=== PATIENT | male | born 1975 | race African-American/Black ===

== ENCOUNTER 2016-10-26 12:55 | Inpatient (IN) | payer OTHER ==
--- NOTE | ~2016-10-26 | DS ---
Unit #: [id number] #: [id number] Patient: JANA TRAN [id number] [facility] [address] [place] [address] [id number] MR#: [id number] NAME: JANA TRAN ROOM: P175 Age: 41 Sex: M Admission Date: 10/26/2016 : 1975 Discharge Date: 10/29/2016 Attending Physician: Nilo Martinez M.D. DISCHARGE SUMMARY IDENTIFYING DATA Mr. Tran is a 41-year-old white male who was self-referred to the hospital. DISCHARGE DIAGNOSES Psychiatric: Major depressive disorder, recurrent, moderate, without psychotic features. Medical: Hypertension. Stressors: Moderate psychosocial stressors. HISTORY OF PRESENT ILLNESS Please see initial psychiatric evaluation for details. PAST PSYCHIATRIC HISTORY Please see initial psychiatric evaluation for details. PAST MEDICAL HISTORY Please see initial psychiatric evaluation for details. HOSPITAL COURSE The patient was admitted to the adult psychiatric unit at [facility] and was oriented to the hospital environment. Routine p.r.n. medications were initiated. He was started back on his home medications taking the medications regularly and was tolerating them fairly well, and was able to show decent therapeutic response with improvement in depression and anxiety and as such, it was decided that he will be discharged and continue treatment on an outpatient basis. DISCHARGE MEDICATIONS . DISCHARGE CONDITION Stable. PROGNOSIS Fair. Dictated by... Antonio Stout/pagel TD: 12/14/2016 13:10 Unit #: [id number] #: [id number] Patient: JNAA TRAN JOB #: [id number] DISCHARGE SUMMARY Page 1 of 1 X Nilo Martinez MD X DISCHARGE SUMMARY
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
--- NOTE | ~2016-10-26 | PN ---
Unit #: [id number] #: [id number] Patient: JANA TRAN [id number] [facility] [address] [place] [address] [id number] I MR#: [id number] NAME: JANA TRAN ROOM: P175 Age: 41 Sex: M Admission Date: 10/26/2016 : 1975 Attending Physician: Nilo Martinez M.D. Admitting Physician: Nilo Martinez M.D. Primary Care Physician: Generic Doctor Not In System [facility] PROGRESS NOTES DATE 10/28/2016 DISCUSSION Mr. Tran is a 41-year-old, male who was seen today and chart was reviewed and case was discussed with the staff. He has been anxious, withdrawn and rather seclusive to himself. Meanwhile, he has been cooperative with the treatment recommendations. He has been taking the medication and tolerating them fairly well with no reported side effects. MENTAL STATUS EXAM Middle-aged male who was casually dressed with fair personal hygiene, appears to be in no acute distress or discomfort. He was awake and alert on interaction with intact orientation. His mood was anxious with congruent affect. His speech was slow and goal directed. He denies any suicidal or homicidal ideation. His insight and judgement remains slightly impaired. TREATMENT PLAN 1. We will continue him on his current medications and treatment protocol. We will monitor his response to medication and make further adjustments as needed. 2. We will continue to follow up. Dictated by... Antonio Stout/junaid TD: 10/29/2016 01:39 JOB #: [id number] Unit #: [id number] #: [id number] Patient: JANA TRAN [facility] PROGRESS NOTES X Nilo Martinez MD PROGRESS NOTE
--- NOTE | ~2016-10-26 | PN ---
Unit #: [id number] #: [id number] Patient: JANA TRAN [id number] [facility] [address] [place] [address] [id number] I MR#: [id number] NAME: JANA TRAN ROOM: P175 Age: 41 Sex: M Admission Date: 10/26/2016 : 1975 Attending Physician: Nilo Martinez M.D. Admitting Physician: Nilo Martinez M.D. Primary Care Physician: Generic Doctor Not In System [facility] PROGRESS NOTES DATE OF SERVICE 10/27/2016 DISCUSSION Mr. Tran is a 41-year-old male who was seen today. Chart was reviewed and case was discussed with the staff. He has been doing fairly though has been complaining of persistent anxiety, depression, and poor sleep at night. Meanwhile, he has been polite, pleasant, and cooperative with treatment recommendations. MENTAL STATUS EXAMINATION Middle-aged male who is casually dressed with fair personal hygiene, appears to be in no acute distress or discomfort. The patient was awake and alert with impaired attention and concentration. His mood is anxious with congruent affect. His speech is slow and restricted in content. He denies any suicidal or homicidal ideations. His insight and judgment remain significantly impaired. TREATMENT PLAN 1. We will continue him on his current treatment protocol. We will monitor his response and make further adjustments as needed. 2. We will continue to follow up. Dictated by... Antonio Stout/scottg TD: 10/28/2016 08:18 JOB #: [id number] [facility] PROGRESS NOTES X Nilo Martinez MD PROGRESS NOTE
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
[2016-10-27 09:54] LABS: URINE APPEARANCE TURBID; URINE BILIRUBIN NEG (NEG); URINE BLOOD NEG (NEG); URINE COLOR YELLOW; URINE GLUCOSE NEG (NEG); URINE KETONE NEG (NEG); URINE LEUKOCYTE ESTERASE NEG (NEG); URINE NITRATE NEG (NEG); URINE PROTEIN NEG (NEG); URINE SPECIFIC GRAVITY 1.029 (1.003-1.035); URINE UROBILINOGEN 0.2 MG/DL (NEG)
[2016-10-27 10:56] LABS: AMPHETAMINE NEG (NEG); BARBITURATES NEG (NEG); BENZODIAZEPINES NEG (NEG); COCAINE POS (NEG); MARIJUANA POS (NEG); OPIATES NEG (NEG); TRICYCLIC ANTIDEPRESSANTS NEG (NEG); U METHADONE NEG (NEG)
== END 2016-10-29 09:30 | DRG 885 ==
LOC: P1E 12:55
PROVIDERS: Psychiatry & Neurology Psychiatry
DX: F33.1 Major depressive disorder, recurrent, moderate (principal); F11.20 Opioid dependence, uncomplicated; I10 Essential (primary) hypertension; F14.10 Cocaine abuse, uncomplicated; F12.10 Cannabis abuse, uncomplicated; F17.210 Nicotine dependence, cigarettes, uncomplicated
CPT/HCPCS: 80307; 81003

== ENCOUNTER 2017-01-05 06:00 | Inpatient (IN) | payer OTHER ==
--- NOTE | ~2017-01-05 | PN ---
Unit #: [id number] #: [id number] Patient: JANA TRAN [id number] [facility] [address] [place] [address] [id number] I MR#: [id number] NAME: JANA TRAN ROOM: P179 Age: 41 Sex: M Admission Date: 01/05/2017 : 1975 Attending Physician: Nilo Martinez M.D. Admitting Physician: Nilo Martinez M.D. Primary Care Physician: Gila Doctor Not In System [facility] PROGRESS NOTES DATE 01/06/2017 DISCUSSION Mr. Tran is a 41-year-old, white male who was seen today and chart was reviewed and case was discussed with the staff. He has been anxious, withdrawn though has not shown any agitation, irritability or behavioral problems and has been cooperative with treatment recommendations. He has been taking the medication and tolerating them fairly well with no reported side effects. MENTAL STATUS EXAM Middle-aged white male who was casually dressed with fair personal hygiene, appears to be in no acute distress or discomfort. He was awake and alert on interaction with intact orientation. His mood was anxious with congruent affect. His speech was slow and goal directed. He denies any suicidal or homicidal ideation. Also, denies any auditory or visual hallucinations. His insight and judgement remains slightly impaired. TREATMENT PLAN 1. We will continue him on his current medications and treatment protocol. We will monitor his response and make further adjustments as needed. 2. We will continue to follow up. Dictated by... Antonio Stout/junaid TD: 01/06/2017 22:25 JOB #: [id number] Unit #: [id number] #: [id number] Patient: JANA TRAN [facility] PROGRESS NOTES Page 1 of 1 X Nilo Martinez MD PROGRESS NOTE
--- NOTE | ~2017-01-05 | PN ---
Unit #: [id number] #: [id number] Patient: JANA TRAN [id number] [facility] [address] [place] [address] [id number] I MR#: [id number] NAME: JANA TRAN ROOM: P179 Age: 41 Sex: M Admission Date: 01/05/2017 : 1975 Attending Physician: Nilo Martinez M.D. Admitting Physician: Nilo Martinez M.D. Primary Care Physician: Gila Doctor Not In System [facility] PROGRESS NOTES DATE 01/09/2017 DISCUSSION Mr. Tran is a 41-year-old, male who was seen today and chart was reviewed and case was discussed with the staff. He has been anxious, withdrawn, depressed and rather seclusive to himself. Meanwhile, he has been cooperative with the treatment recommendations. He has been taking the medication and tolerating them fairly well with no reported side effects. MENTAL STATUS EXAM Middle-aged male who was casually dressed with fair personal hygiene, appears to be in no acute distress or discomfort. He was awake and alert on interaction with intact orientation. His mood was anxious and depressed with congruent affect. He denies any current suicidal or homicidal ideation. Also, denies any auditory or visual hallucinations. His insight and judgement remains slightly impaired. TREATMENT PLAN We will continue him on his current medications and treatment protocol. We will monitor his response and we will consider doing discharge planning tomorrow. Dictated by... Antonio Stout/junaid TD: 01/11/2017 05:11 JOB #: [id number] Unit #: [id number] #: [id number] Patient: JANA TRAN [facility] PROGRESS NOTES Page 1 of 1 X Nilo Martinez MD PROGRESS NOTE
--- NOTE | ~2017-01-05 | PA ---
Unit #: [id number] #: [id number] Patient: JANA TRAN [id number] [facility] [address] [place] [address] [id number] I MR#: [id number] NAME: JANA TRAN ROOM: P179 Age: 41 Sex: M Admission Date: 01/05/2017 : 1975 Date of Assessment: Attending Physician: Nilo Martinez M.D. Admitting Physician: Nilo Martinez M.D. Primary Care Physician: Generic Doctor Not In System PSYCHIATRIC ASSESSMENT DATE OF SERVICE 01/05/2017. IDENTIFYING DATA Mr. Tran is a 41-year-old male, who is a resident of [place], [place], and was self-referred to the hospital on voluntary basis. CHIEF COMPLAINT "I'm depressed. I just feel like dying." HISTORY OF PRESENT ILLNESS Mr. Tran is a 41-year-old male with history of mood disorder, who was self-referred to the hospital reporting increasing depression, anxiety, feelings of hopelessness and helplessness, and suicidal ideation. "It has gotten worse today and I thought about shooting myself. I'm just fed up." He reports that his son in 01/2015. He is currently unemployed and lives with his father and reports losing a baby son in 2014, reports his son dying from SIDS and the patient reports that he continues to have lower back problem, unable to function, and has history of suicidal ideation and currently reports suicidal ideations with intent and plan and as such, recommendation for inpatient level of care for safety and stabilization was made and the patient was stepped up to the inpatient unit. SUBSTANCE ABUSE HISTORY The patient reports history of alcohol, cannabis, cocaine, and opioid abuse in the past, though he reports that he has history of smoking crack and cannabis daily, but reports his last use was about 6 months ago. PAST PSYCHIATRIC HISTORY The patient has had [facility], but currently he is not active in treatment program. Review of the medical records indicate that he is supposed to be on a combination of Wellbutrin, Risperdal, and Remeron. PAST MEDICAL HISTORY The patient's medical history is significant for hypertension and HIV. ALLERGIES No known medication allergies. PERSONAL AND SOCIAL HISTORY Unit #: [id number] #: [id number] Patient: JANA TRAN A 41-year-old male, who reports that he is single, unemployed, and lives with his father and has poor social support system. MENTAL STATUS EXAMINATION Middle-aged male who was casually dressed with fair personal hygiene, appears to be in no acute distress or discomfort. He was awake and alert on interaction with intact orientation to time, place, and person. His mood was anxious and depressed with a congruent affect. His speech was slow and restricted in content. His thought processes were disorganized with some looseness of associations and suicidal ideations. His insight and judgment remain significantly impaired. DIAGNOSTIC IMPRESSION Psychiatric: Major depressive disorder, recurrent, moderate, without psychotic features; cocaine abuse, moderate; cannabis abuse, moderate. Medical: Hypertension, human immunodeficiency virus. Stressors: Moderate psychosocial stressors. TREATMENT PLAN 1. The patient has presented with history of mood disorder and has been decompensating and will need inpatient hospitalization for detoxification, safety, and stabilization. We will start him back on his home medications. We will adjust the medications and monitor response. 2. Supportive therapy was provided to the patient. 3. Safe, structured, and nourishing environment will be provided. ESTIMATED LENGTH OF STAY 4 to 5 days. ABILITY TO HELP SELF Limited. WILLINGNESS TO HELP SELF The patient appears to be willing to help self. STRENGTHS 1. Communicative. 2. Cooperative. PROBLEMS 1. Chronic dysphoric symptoms. 2. Chronic chemical dependency. 3. Poor social support system. DISCHARGE CRITERIA This will be contingent upon the patient's ability to go through detox without having any significant withdrawal symptoms as well as his ability to stay safe to himself, particularly after discharge from the hospital. Dictated by... Nilo Martinez M.D. EULALIA/demarcus TD: 01/06/2017 06:46 JOB #: [id number] Unit #: [id number] #: [id number] Patient: JANA TRAN PSYCHIATRIC ASSESSMENT Page 1 of 1 X Nilo Martinez MD PSYCHIATRIC ASSESSMENT
--- NOTE | ~2017-01-05 | DS ---
Unit #: [id number] #: [id number] Patient: JANA TRAN [id number] [facility] [address] [place] [address] [id number] I MR#: [id number] NAME: JANA TRAN ROOM: P179 Age: 41 Sex: M Admission Date: 01/05/2017 : 1975 Discharge Date: 01/10/2017 Attending Physician: Nilo Martinez M.D. Primary Care Physician: Generic Doctor Not In System DISCHARGE SUMMARY IDENTIFYING DATA Mr. Tran is a 41-year-old male, who is a resident of [place], [place] and was self-referred to the hospital on voluntary basis. DISCHARGE DIAGNOSES Psychiatric: Major depressive disorder, recurrent, moderate, without psychotic features; cocaine abuse, moderate; cannabis abuse, moderate. Medical: Hypertension, human immunodeficiency virus. Stressors: Moderate psychosocial stressors. HISTORY OF PRESENT ILLNESS Please see initial psychiatric evaluation for details. PAST PSYCHIATRIC HISTORY Please see initial psychiatric evaluation for details. PAST MEDICAL HISTORY Please see initial psychiatric evaluation for details. HOSPITAL COURSE The patient was [facility] and was oriented to the hospital environment. Routine p.r.n. medications were initiated, and he was started back on his home medications and was closely monitored. He was seen to be exhibiting very manipulative behavior as he was constantly making statements that he does not need to be here and that he wants to leave and was maintained on his medications and was denying any suicidal ideations, intent, or plan and was not seen to be danger to self or anyone else, and as such, it was decided that he will be discharged home and will continue treatment on an outpatient basis. DISCHARGE MEDICATIONS Neurontin 100 mg b.i.d. for neuropathy, Wellbutrin 100 mg b.i.d. for depression, Remeron 15 mg at bedtime for depression, Risperdal 1 mg at bedtime and 0.5 mg b.i.d. for mood disorder, Norvasc 10 mg a day for hypertension, Zestril 20 mg a day for hypertension, aspirin 81 mg a day for coronary artery disease, Lopressor 25 mg b.i.d. for hypertension, Toradol 10 mg b.i.d. for pain. DISCHARGE CONDITION Stable. Unit #: [id number] #: [id number] Patient: JANA TRAN PROGNOSIS Fair. Dictated by... Antonio Stout/demarcus TD: 01/11/2017 01:55 JOB #: [id number] DISCHARGE SUMMARY Page 1 of 1 X Nilo Martinez MD X DISCHARGE SUMMARY
--- NOTE | ~2017-01-05 | PN ---
Unit #: [id number] #: [id number] Patient: JANA TRAN [id number] [facility] [address] [place] [address] [id number] I MR#: [id number] NAME: JANA TRAN ROOM: P179 Age: 41 Sex: M Admission Date: 01/05/2017 : 1975 Attending Physician: Nilo Martinez M.D. Admitting Physician: Nilo Martinez M.D. Primary Care Physician: Generic Doctor Not In System [facility] PROGRESS NOTES DATE 01/07/2017 DISCUSSION Mr. Tran is a 41-year-old male who was seen today and chart was reviewed and case was discussed with the staff. He was seen to be anxious, restless, pacing the hallways and wanting to leave and was trying to actively mask and minimize his presentation including his thoughts of wanting to shoot himself. There is also red label on the chart regarding duty to warn and I informed about that and he was acting completely ignorant stating that he does not know what that is about. Meanwhile, social staff worker recommended to look into it. MENTAL STATUS EXAMINATION Middle-aged male who was casually dressed with fair personal hygiene and appears to be in no acute distress or discomfort. He was awake and alert on interactions with intact orientation. His mood was anxious with congruent affect. His speech is slow and tangential. Thought processes were disorganized with some looseness of associations, flight of ideas. His insight and judgement remains significantly impaired. TREATMENT PLAN 1. Will continue his current medications and treatment protocol. Will monitor his response to the medications and make further adjustments as needed. 2. Will continue to follow up. Dictated by... Antonio Stout/ponce TD: 01/08/2017 22:28 JOB #: [id number] Unit #: [id number] #: [id number] Patient: JANA TRAN [facility] PROGRESS NOTES Page 1 of 1 X Nilo Martinez MD X PROGRESS NOTE
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
--- NOTE | ~2017-01-05 | PN ---
Unit #: [id number] #: [id number] Patient: JANA TRAN [id number] [facility] [address] [place] [address] [id number] I MR#: [id number] NAME: JANA TRAN ROOM: P179 Age: 41 Sex: M Admission Date: 01/05/2017 : 1975 Attending Physician: Nilo Martinez M.D. Admitting Physician: Nilo Martinez M.D. Primary Care Physician: Generic Doctor Not In System [facility] PROGRESS NOTES DATE OF SERVICE: 01/08/2017 SUBJECTIVE Mr. Tran is a 41-year-old male, who was seen today and chart was reviewed, and case was discussed with the staff. He has been doing fairly well with no agitation, irritability. Calm and cooperative, though he has been agitation and aggression. MENTAL STATUS EXAMINATION Middle-aged male who was casually dressed with fair personal hygiene, appears to be in no acute distress or discomfort. He was awake and alert with impaired attention and concentration. His mood was anxious with a congruent affect. His speech was slow and restricted in content. He denies any suicidal or homicidal ideations. His insight and judgment remain significantly impaired. TREATMENT PLAN 1. We will continue him on his current medications and treatment protocol. We will monitor his response to medications and make further adjustments as needed. 2. We will continue to follow up. Dictated by... Antonio Stout/demarcus TD: 01/09/2017 01:54 JOB #: [id number] [facility] PROGRESS NOTES Page 1 of 1 X Nilo Martinez MD PROGRESS NOTE
[2017-01-06 10:02] LABS: URINE APPEARANCE CLEAR; URINE BILIRUBIN NEG (NEG); URINE BLOOD NEG (NEG); URINE COLOR YELLOW; URINE GLUCOSE NEG (NEG); URINE KETONE NEG (NEG); URINE LEUKOCYTE ESTERASE 1+ (NEG); URINE NITRATE NEG (NEG); URINE PROTEIN NEG (NEG); URINE SPECIFIC GRAVITY 1.013 (1.003-1.035); URINE UROBILINOGEN 0.2 MG/DL (NEG)
[2017-01-06 10:04] LABS: U HYALINE CASTS AUWI 0-2 /[LPF]; URBCS1 AUWI 0-2 /[HPF] (0-2); URINE BACTERIA AUWI NEG (NEGATIVE); URINE SQUAMOUS EPITHELIAL CELL OCC /[HPF]
[2017-01-06 10:55] LABS: AMPHETAMINE NEG (NEG); BARBITURATES NEG (NEG); BENZODIAZEPINES NEG (NEG); COCAINE POS (NEG); MARIJUANA POS (NEG); OPIATES NEG (NEG); TRICYCLIC ANTIDEPRESSANTS NEG (NEG); U METHADONE NEG (NEG)
[2017-01-08 13:48] LABS: BASOPHIL% 1.3 % (0-2.5); DIFF IND NO; EOSINOPHIL# 0.2 X10e3 (0-0.7); EOSINOPHIL% 5.2 % (0.0-7.0); HEMATOCRIT 41.8 % (38.0-50.0); HEMOGLOBIN 13.8 gm/dL (13.0-16.0); LYMPHOCYTE# 1.3 X10e3 (1.0-3.5); LYMPHOCYTE% 35.3 % (17.0-45.0); MEAN CELL VOLUME 93.1 FL (83-96); MEAN CORPUSCULAR HEMOGLOBIN 30.8 PG (28-34); MEAN CORPUSCULAR HGB CONC 33.1 g/dL (30-36); MEAN PLATELET VOLUME 8.2 FL (6.5-11.5); MONOCYTE# 0.3 X10e3 (0-1.0); MONOCYTE% 9.2 % (3.0-12.0); NEUTROPHIL# 1.8 X10e3 (1.5-7.1); PLATELET COUNT 215 X10e3 (140-420); RED BLOOD COUNT 4.49 X10e (3.90-5.60); RED CELL DISTRIBUTION WIDTH 13.5 % (11.0-15.5); WHITE BLOOD COUNT 3.6 X10e3 (4.0-10.5)
[2017-01-08 14:06] LABS: ALBUMIN SERUM 3.9 g/dL (3.5-5.0); BILIRUBIN,TOTAL 0.5 mg/dL (0.2-2.0); BUN/CREATININE RATIO 12.5; CALCIUM SERUM 9.2 mg/dL (8.4-10.2); CREATININE SERUM 1.2 mg/dL (0.6-1.4); GLOM FILT RATE Estimated 85.3 mL/min (>60); POTASSIUM 4.6 mmol/L (3.5-5.1); PROTEIN TOTAL SERUM 6.7 g/dL (6.0-8.3)
== END 2017-01-10 08:34 | disposition home or self-care (01) | DRG 885 ==
LOC: P1E 09:13
PROVIDERS: Psychiatry & Neurology Psychiatry
PROC: HZ2ZZZZ Detoxification Services for Substance Abuse Treatment (ICD-10-PCS; principal; 2017-01-05)
DX: F33.1 Major depressive disorder, recurrent, moderate (principal); I10 Essential (primary) hypertension; F14.10 Cocaine abuse, uncomplicated; F12.10 Cannabis abuse, uncomplicated; Z21 Asymptomatic human immunodeficiency virus [HIV] infection status; F17.210 Nicotine dependence, cigarettes, uncomplicated; Z79.82 Long term (current) use of aspirin
CPT/HCPCS: 80053; 80307; 81003; 85025

== ENCOUNTER 2017-03-05 09:00 | Inpatient (IN) | payer OTHER ==
--- NOTE | ~2017-03-05 | DS ---
Unit #: [id number] #: [id number] Patient: JANA TRAN [id number] [facility] [address] [place] [address] [id number] I MR#: [id number] NAME: JANA TRAN ROOM: P214 Age: 41 Sex: M Admission Date: 03/05/2017 : 1975 Discharge Date: 03/09/2017 Attending Physician: Nilo Martinez M.D. Primary Care Physician: Generic Doctor Not In System DISCHARGE SUMMARY IDENTIFYING DATA Mr. Morris is a 41-year-old male, who is a resident of [place], [place], and is known to us from previous encounter, was self-referred to the hospital on a voluntary basis. DISCHARGE DIAGNOSES Psychiatric: Bipolar disorder, most recent episode depressed, recurrent, moderate, without psychotic features; opioid dependence, moderate and acute withdrawals; cocaine abuse, moderate; cannabis abuse, moderate. Medical: Hypertension. Stressors: Moderate psychosocial stressors. HISTORY OF PRESENT ILLNESS Please see initial psychiatric evaluation for details. PAST PSYCHIATRIC HISTORY Please see initial psychiatric evaluation for details. PAST MEDICAL HISTORY Please see initial psychiatric evaluation for details. HOSPITAL COURSE The patient was admitted to the adult psychiatric unit at [facility] shakir Cunningham and was oriented to the hospital environment. Routine p.r.n. medications were initiated, and he was started back on his home medications and was closely monitored. He was taking the medications regularly and was tolerating them fairly well and was able to show a decent and therapeutic response with improvement in depression and anxiety and as such, it was decided that he will be discharged home and will continue treatment on an outpatient basis. DISCHARGE MEDICATIONS Wellbutrin 100 mg b.i.d. for depression, Remeron 15 mg at bedtime for depression, Risperdal 0.5 mg in the morning and afternoon and 1 mg at bedtime for psychosis, Norvasc 10 mg a day for hypertension, Zestril 20 mg a day for hypertension, aspirin 81 mg a day for coronary artery disease, Lopressor 25 mg b.i.d. for hypertension. DISCHARGE CONDITION Stable. PROGNOSIS Fair. Unit #: [id number] #: [id number] Patient: JANA TRAN Dictated by... Nilo Martinez M.D. IAA/modl TD: 03/10/2017 02:12 JOB #: [id number] DISCHARGE SUMMARY Page 1 of 1 X Nilo Martinez MD DISCHARGE SUMMARY
--- NOTE | ~2017-03-05 | PN ---
Unit #: [id number] #: [id number] Patient: JANA TRAN [id number] [facility] [address] [place] [address] [id number] I MR#: [id number] NAME: JANA TRAN ROOM: P214 Age: 41 Sex: M Admission Date: 03/05/2017 : 1975 Attending Physician: Nilo Martinez M.D. Admitting Physician: Nilo Martinez M.D. Primary Care Physician: Generic Doctor Not In System [facility] PROGRESS NOTES DATE 03/07/2017 DISCUSSION Mr. Tran is a 41-year-old, male who was seen today and chart was reviewed and case was discussed with the staff. He has been anxious, withdrawn and rather seclusive to himself. Meanwhile, he has been cooperative with treatment recommendations. He has been taking medications and tolerating them fairly well with no reported side effects. MENTAL STATUS EXAM Middle-aged male who was casually dressed with fair personal hygiene, appears to be in no acute distress or discomfort. He was awake and alert on interaction with intact orientation. His mood was anxious with congruent affect. He denies any suicidal or homicidal ideation. His insight and judgement remains slightly impaired. TREATMENT PLAN 1. We will continue him on his current medications and treatment protocol. We will monitor his response to the medication and make further adjustments as needed. 2. We will continue to follow up. Dictated by... Antonio Stout/junaid TD: 03/08/2017 04:53 JOB #: [id number] Unit #: [id number] #: [id number] Patient: JANA TRAN [facility] PROGRESS NOTES Page 1 of 1 X Nilo Martinez MD PROGRESS NOTE
--- NOTE | ~2017-03-05 | PN ---
Unit #: [id number] #: [id number] Patient: JANA TRAN [id number] [facility] [address] [place] [address] [id number] I MR#: [id number] NAME: JANA TRAN ROOM: P214 Age: 41 Sex: M Admission Date: 03/05/2017 : 1975 Attending Physician: Nilo Martinez M.D. Admitting Physician: Nilo Martinez M.D. Primary Care Physician: Generic Doctor Not In System [facility] PROGRESS NOTES DATE OF SERVICE 03/08/2017 DISCUSSION Mr. Tran is a 41-year-old male who was seen today. Chart was reviewed and case was discussed with the staff. He has been anxious, withdrawn, and rather seclusive to himself. Meanwhile, he has been cooperative with the treatment recommendations and has been taking the medications and tolerating them fairly well with no reported side effects. MENTAL STATUS EXAMINATION Young male who is casually dressed with fair personal hygiene, appears to be in no acute distress or discomfort. He was awake and alert on interaction with intact orientation. His mood is anxious with a congruent affect. He denies any suicidal or homicidal ideations. His insight and judgment remain slightly impaired. TREATMENT PLAN 1. We will continue him on his current medications and treatment protocol. We will monitor his response to the medications and make further adjustments as needed. 2. We will continue to follow up. Dictated by... Nilo Martinez M.D. IAA/bzg TD: 03/09/2017 10:42 JOB #: [id number] Unit #: [id number] #: [id number] Patient: JANA TRAN [facility] PROGRESS NOTES Page 1 of 1 X Nilo Martinez MD PROGRESS NOTE
--- NOTE | ~2017-03-05 | PN ---
Unit #: [id number] #: [id number] Patient: JANA TRAN [id number] [facility] [address] [place] [address] [id number] I MR#: [id number] NAME: JANA TRAN ROOM: P259 Age: 41 Sex: M Admission Date: 03/05/2017 : 1975 Attending Physician: Nilo Martinez M.D. Admitting Physician: Antonio Stout PROGRESS NOTES DATE OF SERVICE: 03/06/2017 SUBJECTIVE Mr. Tran is a 41-year-old male, who was seen today and chart was reviewed, and the case was discussed with the staff. He has been anxious, withdrawn, and rather seclusive to himself. Meanwhile, he has been cooperative with the treatment recommendations and has been taking the medications and tolerating them fairly well with no reported side effects. MENTAL STATUS EXAMINATION Middle-aged male, who was casually dressed with fair personal hygiene, appears to be in no acute distress or discomfort. He was awake and alert on interaction with intact orientation. His mood was anxious with a congruent affect. He denies any suicidal or homicidal ideations. His insight and judgment remain slightly impaired. TREATMENT PLAN 1. We will continue him on his current treatment protocol. We will monitor his response to medications and make further adjustments as needed. 2. We will continue to follow up. Dictated by... Antonio Stout/demarcus TD: 03/06/2017 13:32 JOB #: [id number] [facility] PROGRESS NOTES Page 1 of 1 X Nilo Martinez MD PROGRESS NOTE
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
[2017-03-06 11:57] LABS: URINE APPEARANCE CLEAR; URINE BILIRUBIN NEG (NEG); URINE BLOOD NEG (NEG); URINE COLOR YELLOW; URINE GLUCOSE NEG (NEG); URINE KETONE NEG (NEG); URINE LEUKOCYTE ESTERASE TRACE (NEG); URINE NITRATE NEG (NEG); URINE PH 6.5 (5-8); URINE PROTEIN NEG (NEG); URINE SPECIFIC GRAVITY 1.019 (1.003-1.035)
[2017-03-06 12:00] LABS: U HYALINE CASTS AUWI 0-2 /[LPF]; URINE BACTERIA AUWI NEG (NEGATIVE); URINE SQUAMOUS EPITHELIAL CELL OCC /[HPF]; UWBCS1 AUWI 0-2 (0-5)
[2017-03-06 12:08] LABS: AMPHETAMINE NEG (NEG); BARBITURATES NEG (NEG); BENZODIAZEPINES NEG (NEG); COCAINE POS (NEG); MARIJUANA POS (NEG); OPIATES NEG (NEG); TRICYCLIC ANTIDEPRESSANTS NEG (NEG); U METHADONE NEG (NEG)
[2017-03-07 10:19] LABS: EOSINOPHIL# 0.2 X10e3 (0-0.7); EOSINOPHIL% 5.5 % (0.0-7.0); HEMATOCRIT 43.2 % (38.0-50.0); HEMOGLOBIN 14.2 gm/dL (13.0-16.0); LYMPHOCYTE# 1.2 X10e3 (1.0-3.5); LYMPHOCYTE% 30.3 % (17.0-45.0); MEAN CELL VOLUME 92.5 FL (83-96); MEAN CORPUSCULAR HEMOGLOBIN 30.5 PG (28-34); MEAN CORPUSCULAR HGB CONC 32.9 g/dL (30-36); MEAN PLATELET VOLUME 8.1 FL (6.5-11.5); MONOCYTE# 0.3 X10e3 (0-1.0); MONOCYTE% 8.3 % (3.0-12.0); NEUTROPHIL# 2.2 X10e3 (1.5-7.1); NEUTROPHIL% 54.9 % (40-75); PLATELET COUNT 177 X10e3 (140-420); RED BLOOD COUNT 4.68 X10e (3.90-5.60); RED CELL DISTRIBUTION WIDTH 13.1 % (11.0-15.5)
[2017-03-07 10:24] LABS: DIFF IND NO
[2017-03-07 10:36] LABS: ALBUMIN SERUM 3.8 g/dL (3.5-5.0); BILIRUBIN,TOTAL 0.4 mg/dL (0.2-2.0); BUN/CREATININE RATIO 11.81; CALCIUM SERUM 9.1 mg/dL (8.4-10.2); CREATININE SERUM 1.1 mg/dL (0.6-1.4); GLOM FILT RATE Estimated 94.8 mL/min (>60); POTASSIUM 4.3 mmol/L (3.5-5.1); PROTEIN TOTAL SERUM 6.5 g/dL (6.0-8.3)
== END 2017-03-09 09:35 | DRG 885 ==
LOC: P2L 10:54 → P2S 10:54 → P1E 03-07 12:02 → P2S 03-07 20:45
PROVIDERS: Psychiatry & Neurology Psychiatry
DX: F31.32 Bipolar disorder, current episode depressed, moderate (principal); F14.20 Cocaine dependence, uncomplicated; F11.23 Opioid dependence with withdrawal; F12.20 Cannabis dependence, uncomplicated; T40.5X5A Adverse effect of cocaine, initial encounter; T40.7X5A Adverse effect of cannabis (derivatives), initial encounter; F17.210 Nicotine dependence, cigarettes, uncomplicated
CPT/HCPCS: 80053; 80307; 81003; 85025

== ENCOUNTER 2017-04-13 15:41 | Emergency (ER) | payer OTHER ==
[~2017-04-13] VITALS: Ht 167.6 cm; Wt 79.4 kg
== END 2017-04-13 18:00 | disposition left against medical advice (07) ==
LOC: CED 15:41
DX: Z53.21 Procedure and treatment not carried out due to patient leaving prior to being seen by health care provider (principal)

== ENCOUNTER 2017-04-14 05:35 | Emergency (ER) | payer OTHER ==
--- NOTE | ~2017-04-14 | US115 ---
[facility] A Service of [facility] RADIOLOGY TEXT RESULTS PATIENT: JANA TRAN LOCATION: [facility] : [birth year] UNIT #: [id number] AGE: [address]: Joe Patel DO SEX: M ORDER DR: [id number] [facility] [address] [facility] [place], [place] [address] [id number] MR#: [id number] Acc #: [id number] NAME: JANA TRAN : 1975 SEX: M STUDY DATE/TIME: 04/14/2017 7:27 UNIT: REBECCA ROOM: STUDY DESCRIPTION: US Scrotum and Contents Attending Physician: Joe Patel D.O. Ordering Physician: Joe Patel D.O. Primary Care Physician: Primary Care Physician No MEDICAL IMAGING REPORT This report is preliminary unless electronic signature is present EXAM Scrotal ultrasound INDICATIONS Left testicular pain for 4 days. COMPARISON None available. FINDINGS The left testicle and left epididymis are hypervascular. The left epididymis is enlarged. The left testicle measures 4.8 x 3.4 x 3.1 cm. No testicular mass. There is a moderate left hydrocele. The right testicle is normal in size measuring 4.4 x 2.9 x 1.7 cm. Echogenicity and echotexture of the testicle is normal. There is normal color Doppler flow. IMPRESSION 1. Hypervascular left testicle with a hypervascular and large left epididymis. This is consistent with epididymo-orchitis. 2. Moderate left hydrocele. Dictated by... Damion Cho M.D. THIS IS AN ELECTRONICALLY VERIFIED REPORT Damion Cho M.D. at 04/14/2017 1:21 PM RPC/rnr TD: 04/14/2017 12:46 JOB #: [id number] [facility] A Service of [facility] RADIOLOGY TEXT RESULTS PATIENT: JANA TRAN LOCATION: [facility] : [birth year] UNIT #: [id number] AGE: [address]: Joe Patel DO SEX: M ORDER DR: MEDICAL IMAGING REPORT Page 1 of 1 COPY
[2017-04-14 06:36] LABS: BASOPHIL# 0.1 X10e3 (0-0.3); BASOPHIL% 1.3 % (0-2.5); EOSINOPHIL# 0.2 X10e3 (0-0.7); EOSINOPHIL% 2.8 % (0.0-7.0); HEMATOCRIT 36.2 % (38.0-50.0); HEMOGLOBIN 12.5 gm/dL (13.0-16.0); LYMPHOCYTE# 1.1 X10e3 (1.0-3.5); LYMPHOCYTE% 14.4 % (17.0-45.0); MEAN CELL VOLUME 90.2 FL (83-96); MEAN CORPUSCULAR HEMOGLOBIN 31.1 PG (28-34); MEAN CORPUSCULAR HGB CONC 34.5 g/dL (30-36); MEAN PLATELET VOLUME 6.7 FL (6.5-11.5); MONOCYTE# 0.5 X10e3 (0-1.0); MONOCYTE% 6.8 % (3.0-12.0); NEUTROPHIL# 5.7 X10e3 (1.5-7.1); NEUTROPHIL% 74.7 % (40-75); PLATELET COUNT 256 X10e3 (140-420); RED BLOOD COUNT 4.01 X10e (3.90-5.60); RED CELL DISTRIBUTION WIDTH 13.5 % (11.0-15.5); WHITE BLOOD COUNT 7.6 X10e3 (4.0-10.5)
[2017-04-14 06:37] LABS: DIFF IND NO
[2017-04-14 07:02] LABS: BUN/CREATININE RATIO 12.72; CALCIUM SERUM 8.6 mg/dL (8.4-10.2); CREATININE SERUM 1.1 mg/dL (0.6-1.4); GLOM FILT RATE Estimated 94.8 mL/min (>60); POTASSIUM 3.7 mmol/L (3.5-5.1)
[2017-04-14 07:29] LABS: URINE SOURCE CLEAN CATCH
[2017-04-14 07:40] LABS: URINE APPEARANCE CLOUDY; URINE BILIRUBIN NEG (NEG); URINE BLOOD TRACE (NEG); URINE COLOR YELLOW; URINE GLUCOSE NEG (NEG); URINE KETONE NEG (NEG); URINE LEUKOCYTE ESTERASE 2+ (NEG); URINE NITRATE NEG (NEG); URINE PH 5.5 (5-8); URINE PROTEIN TRACE (NEG)
[2017-04-14 07:43] LABS: CULTURE INDICATED? YES; URINE BACTERIA AUWI NEG (NEGATIVE); URINE SQUAMOUS EPITHELIAL CELL NONE SEEN /[HPF]; UWBCS1 AUWI INNUM (0-5)
[2017-04-18 11:16] LABS: CHLAMYDIA TRACH Not Detected (Not Detected); N GONOR Not Detected (Not Detected)
== END 2017-04-14 09:42 | disposition home or self-care (01) ==
LOC: CED 05:35
PROVIDERS: Emergency Medicine
DX: N45.3 Epididymo-orchitis (principal); I10 Essential (primary) hypertension; F17.200 Nicotine dependence, unspecified, uncomplicated
CPT/HCPCS: 36415; 76870; 80048; 81003; 85025; 87086; 87491; 87591; 93976; 96372; 96374; 99284; J0696; J1885

== ENCOUNTER 2017-04-25 12:26 | Inpatient (IN) | payer OTHER ==
[~2017-04-25] VITALS: Ht 167.6 cm; Wt 79.4 kg
--- NOTE | ~2017-04-25 | PN ---
Unit #: [id number] #: [id number] Patient: JANA TRAN [id number] [facility] [address] [place] [address] [id number] MR#: [id number] NAME: JANA TRAN ROOM: P258 Age: 41 Sex: M Admission Date: 04/25/2017 : 1975 Attending Physician: Nilo Martinez M.D. Primary Care Physician: Primary Care Physician Karen HART NOTES DATE April 29, 2017 DISCUSSION Mr. Tran is a 41-year-old male, who was seen today and chart was reviewed and the case was discussed with the staff. He has been anxious, withdrawn, and rather seclusive to himself. Meanwhile, he has been cooperative with the treatment recommendations and he has been taking the medications and tolerating them fairly well with no reported side effects. MENTAL STATUS EXAMINATION Middle-aged male, who was casually dressed with fair personal hygiene and appears to be in no acute distress or discomfort. He was awake and alert with intact orientation. His mood is anxious with a congruent affect. He denies any suicidal or homicidal ideations. His insight and judgment remain slightly impaired. TREATMENT PLAN 1. We will continue him on his current medications and treatment protocol, and will monitor his response to the medications, and make further adjustments as needed. 2. We will continue to followup. Dictated by... Antonio Stout/fermín TD: 04/29/2017 12:03 JOB #: [id number] Unit #: [id number] #: [id number] Patient: JANA TRAN [facility] PROGRESS NOTES Page 1 of 1 X Nilo Martinez MD PROGRESS NOTE
--- NOTE | ~2017-04-25 | PN ---
Unit #: [id number] #: [id number] Patient: JANA TRAN [id number] [facility] [address] [place] [address] [id number] I MR#: [id number] NAME: JANA TRAN ROOM: P258 Age: 41 Sex: M Admission Date: 04/25/2017 : 1975 Attending Physician: Nilo Martinez M.D. Primary Care Physician: Primary Care Physician Karen HART NOTES DATE April 28, 2017 DISCUSSION Mr. Tran is a 41-year-old male, who was seen today and chart was reviewed and the case was discussed with the staff. He has been doing fairly well and reports that he wants to go to long-term rehab level of care and is working with social work specialist and (1) , he continues to express some persistent depressive symptoms. There is no agitation or aggression reported. MENTAL STATUS EXAMINATION Middle-aged male, who was casually dressed with fair personal hygiene and appears to be in no acute distress or discomfort. He was awake and alert with impaired attention and concentration. His mood is anxious with a congruent affect. His speech is slow and tangential. His thought processes are disorganized with some looseness of associations. He denies any suicidal or homicidal ideations, and also denies any auditory or visual hallucinations. His insight and judgment remain slightly impaired. TREATMENT PLAN 1. We will continue him on his current medications and treatment protocol, and will monitor his response to the medications, and make further adjustments as needed. 2. We will continue to followup. Dictated by... Antonio Stout/fermín TD: 04/28/2017 13:13 JOB #: [id number] Unit #: [id number] #: [id number] Patient: JANA TRAN [place] PROGRESS NOTES Page 1 of 1 X Nilo Martinez MD PROGRESS NOTE
--- NOTE | ~2017-04-25 | PA ---
Unit #: [id number] #: [id number] Patient: JANA TRAN [id number] [facility] [address] [place] [address] [id number] I MR#: [id number] NAME: JANA TRAN ROOM: P258 Age: 41 Sex: M Admission Date: 04/25/2017 : 1975 Date of Assessment: 04/25/2017 Attending Physician: Nilo Martinez M.D. Primary Care Physician: Primary Care Physician No PSYCHIATRIC ASSESSMENT DATE OF SERVICE 04/25/2017. IDENTIFYING DATA Mr. Tran is a 41-year-old male, who is a resident of [place], [place], and is known to me from previous encounter and was self-referred to the hospital on a voluntary basis. CHIEF COMPLAINT "I'm very suicidal, on the verge of hurting myself." HISTORY OF PRESENT ILLNESS Mr. Aviles is a 41-year-old male with history of mood disorder, who came to the hospital reporting increasing depression, anger, and suicidal thoughts and stated that he is currently having family issues that are causing him to feel this way and that this has been going on for about a month and recently it has gotten worse. He reports that he is currently unemployed and lives with his father and that he has no issues with his father or any conflict in his living situation. However, he reports that he lost his baby son in 2014 and reports his son dying from SIDS and states that it still affects him and has been having increasing depression, anxiety, irritability, feelings of hopelessness and helplessness, and suicidal ideations and stating "I took some pills about 4 days ago, I took Xanax and Lortab." He reports having history of suicidal thoughts and attempts and reports that he tried to drink bleach and that his suicidal thoughts were triggered due to his son's and now he has been having thoughts to kill himself, and as such, a recommendation for inpatient level of care for safety and stabilization was made and the patient was stepped up to the inpatient unit. SUBSTANCE ABUSE HISTORY The patient reports history of cocaine and opioid abuse and reports that his last use of opioids was on 03/05/2017 and denies any drug abuse in the last month or so. PAST PSYCHIATRIC HISTORY The patient has had a history of inpatient psychiatric hospitalization at [facility] around 5 times and has done outpatient treatment as well, and review of the medical records indicate that he has been diagnosed and treated for bipolar disorder and is supposed to be on a combination of Wellbutrin, Remeron, and Risperdal, but has been noncompliant with medications and as such, has been decompensating. Unit #: [id number] #: [id number] Patient: JANA TRAN PAST MEDICAL HISTORY Significant for hypertension and chronic back pain. ALLERGIES No known medication allergies. PERSONAL AND SOCIAL HISTORY A 41-year-old male, who reports that he is single, unemployed, and lives at home with his father and has fairly decent social support system. MENTAL STATUS EXAMINATION Middle-aged male, who was casually dressed with a fair personal hygiene, appears to be in no acute distress or discomfort. He was awake and alert on interaction with intact orientation to time, place, and person. His mood was anxious and depressed with a congruent affect. His speech was slow and restricted in content. He reports having suicidal ideations, but denies any homicidal ideations and also denies any auditory or visual hallucinations. His insight and judgment remain significantly impaired. DIAGNOSTIC IMPRESSION Psychiatric: Bipolar disorder, most recent episode depressed, recurrent, moderate, without psychotic features; cocaine abuse, moderate; and opioid abuse, moderate. Medical: None. Stressors: Moderate psychosocial stressors. TREATMENT PLAN 1. The patient has presented with history of mood disorder and substance abuse and has been decompensating and will need inpatient hospitalization for safety and stabilization. We will start him back on his home medications and we will adjust the medications and monitor response. 2. Supportive therapy was provided to the patient. 3. Safe, structured, and nourishing environment will be provided. ESTIMATED LENGTH OF STAY 4 to 5 days. ABILITY TO HELP SELF Limited. WILLINGNESS TO HELP SELF The patient appears to be willing to help self. STRENGTHS 1. Communicative. 2. Cooperative. PROBLEMS 1. Chronic dysphoric symptoms. 2. Poor social support system. DISCHARGE CRITERIA This will be contingent upon the patient's ability to show resolution of his depression and anxiety as well as his ability to stay safe to himself and others, particularly after discharge from the hospital. Unit #: [id number] #: [id number] Patient: JANA TRAN Dictated by... Antonio Stout/demarcus TD: 04/26/2017 20:32 JOB #: [id number] PSYCHIATRIC ASSESSMENT Page 1 of 1 X Nilo Martinez MD PSYCHIATRIC ASSESSMENT
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
--- NOTE | ~2017-04-25 | PN ---
Unit #: [id number] #: [id number] Patient: JANA TRAN [id number] [facility] [address] [place] [address] [id number] MR#: [id number] NAME: JANA TRAN ROOM: P258 Age: 41 Sex: M Admission Date: 04/25/2017 : 1975 Attending Physician: Nilo Martinez M.D. Primary Care Physician: Primary Care Physician Karen HART NOTES DATE April 27, 2017 DISCUSSION Mr. Tran is a 41-year-old male, who was seen today and chart was reviewed and the case was discussed with the staff. He has been anxious, withdrawn, and rather seclusive to himself and has not been socializing and interacting or functioning very well and was hardly able to get up, yesterday, and didn't even take his medication. He has been talking to me about wanting to go to long-term rehab level of care after being discharged from the hospital. MENTAL STATUS EXAMINATION Middle-aged male, who was casually dressed with fair personal hygiene and appears to be in no acute distress or discomfort. He was awake and alert with impaired attention and concentration. His mood is anxious with a congruent affect. His speech is slow and tangential. His thought processes are disorganized with some looseness of associations and paranoid ideations. His insight and judgment remain significantly impaired. TREATMENT PLAN 1. We will continue him on his current medications and treatment protocol, and will monitor his response to the medications, and make further adjustments as needed. 2. We will continue to followup. Dictated by... Antonio Stout/fermín TD: 04/27/2017 12:51 JOB #: [id number] Unit #: [id number] #: [id number] Patient: JANA TRAN [place] PROGRESS NOTES Page 1 of 1 X Nilo Martinez MD PROGRESS NOTE
[2017-04-26 10:09] LABS: URINE APPEARANCE CLEAR; URINE BILIRUBIN NEG (NEG); URINE BLOOD NEG (NEG); URINE COLOR YELLOW; URINE GLUCOSE NEG (NEG); URINE KETONE NEG (NEG); URINE LEUKOCYTE ESTERASE TRACE (NEG); URINE NITRATE NEG (NEG); URINE PH 6.5 (5-8); URINE PROTEIN NEG (NEG); URINE SPECIFIC GRAVITY 1.017 (1.003-1.035); URINE UROBILINOGEN 0.2 MG/DL (NEG)
[2017-04-26 10:11] LABS: URBCS1 AUWI 0-2 /[HPF] (0-2); URINE BACTERIA AUWI NEG (NEGATIVE); URINE SQUAMOUS EPITHELIAL CELL NONE SEEN /[HPF]
[2017-04-26 11:44] LABS: AMPHETAMINE NEG (NEG); BARBITURATES NEG (NEG); BENZODIAZEPINES NEG (NEG); COCAINE POS (NEG); MARIJUANA POS (NEG); OPIATES NEG (NEG); TRICYCLIC ANTIDEPRESSANTS NEG (NEG); U METHADONE NEG (NEG)
[2017-04-27 09:45] LABS: BASOPHIL% 1.1 % (0-2.5); EOSINOPHIL# 0.2 X10e3 (0-0.7); EOSINOPHIL% 4.1 % (0.0-7.0); HEMATOCRIT 38.7 % (38.0-50.0); HEMOGLOBIN 12.8 gm/dL (13.0-16.0); LYMPHOCYTE# 1.4 X10e3 (1.0-3.5); LYMPHOCYTE% 33.3 % (17.0-45.0); MEAN CELL VOLUME 91.6 FL (83-96); MEAN CORPUSCULAR HEMOGLOBIN 30.4 PG (28-34); MEAN CORPUSCULAR HGB CONC 33.1 g/dL (30-36); MEAN PLATELET VOLUME 7.3 FL (6.5-11.5); MONOCYTE# 0.3 X10e3 (0-1.0); MONOCYTE% 6.7 % (3.0-12.0); NEUTROPHIL# 2.4 X10e3 (1.5-7.1); NEUTROPHIL% 54.8 % (40-75); PLATELET COUNT 266 X10e3 (140-420); RED BLOOD COUNT 4.23 X10e (3.90-5.60); RED CELL DISTRIBUTION WIDTH 13.9 % (11.0-15.5); WHITE BLOOD COUNT 4.3 X10e3 (4.0-10.5)
[2017-04-27 09:54] LABS: DIFF IND NO
[2017-04-27 10:56] LABS: ALBUMIN SERUM 3.2 g/dL (3.5-5.0); BILIRUBIN,TOTAL 0.4 mg/dL (0.2-2.0); BUN/CREATININE RATIO 12.72; CALCIUM SERUM 8.8 mg/dL (8.4-10.2); CREATININE SERUM 1.1 mg/dL (0.6-1.4); GLOM FILT RATE Estimated 94.8 mL/min (>60); POTASSIUM 4.3 mmol/L (3.5-5.1)
== END 2017-04-29 13:45 | disposition home or self-care (01) | DRG 885 ==
LOC: P2L 16:00
PROVIDERS: Psychiatry & Neurology Psychiatry
DX: F31.32 Bipolar disorder, current episode depressed, moderate (principal); F11.20 Opioid dependence, uncomplicated; R45.851 Suicidal ideations; F12.20 Cannabis dependence, uncomplicated; F17.200 Nicotine dependence, unspecified, uncomplicated; I10 Essential (primary) hypertension; Z91.14 Patient's other noncompliance with medication regimen
CPT/HCPCS: 80053; 80307; 81003; 85025